=== PATIENT | female | born 1955 | race Caucasian/White ===

== ENCOUNTER 2024-08-29 07:54 | Emergency (ER) | payer OTHER, BC, SELFPAY ==
[2024-08-29 08:03] VITALS: BP 169/84; BMI 27.8
[2024-08-29] MEDS: DILAUDID 0.5 MG IM (08:19)
--- NOTE | 2024-08-29 09:13 | ED.MUSCINJ ---
HPI-Injury
General
Chief Complaint: Fall
Time Seen by Provider: 08/29/24 08:08
History of Present Illness-Injury
Initial Injury comments:
Patient is a 68-year-old woman presenting to the emergency department left shoulder injury. Patient states that her dog was on a leash and the dog got spooked causing her to fall hitting her shoulder. She did not hit her head or lose
consciousness. She is not on any blood thinners. She was able to get up and ambulate after the fall. Her only complaint is shoulder pain. No numbness tingling. Weakness secondary to the pain.
Phy Exam
Physical Exam
Physical Exam:
GENERAL: no acute distress
HEENT: atraumatic, extraocular muscles intact, no signs of entrapment, dentition intact, no other obvious trauma
NECK: no midline tenderness, normal range of motion
BACK: no midline tenderness, no other obvious trauma
CHEST: no tenderness, no flail segment, no subcutaneous emphysema, no other obvious trauma
LUNGS: clear to auscultation bilaterally
CARDIOVASCULAR: regular rate and rhythm
ABDOMEN: soft, non-tender, no masses, no other obvious trauma
PELVIS: stable, no obvious injury
EXTREMITIES: Left shoulder with tenderness diffusely,, no skin tenting, no obvious deformity otherwise moving all extremities, distal pulses intact, no other obvious trauma
NEUROLOGIC: awake, alert x 3, no focal deficits
Injury Course
Orders/Labs/Results
Orders:
Orders
08/29/24 08:15
HYDROmorphone [Dilaudid] 0.5 mg IM NOW STA
CR Shoulder, Trauma - Left Urgent
Reason For Exam: deformity
08/29/24 08:52
Sling Left-Treatment ONCE
Ibuprofen [Motrin] 800 mg PO NOW STA
08/29/24 09:54
Ibuprofen [Motrin] 800 mg .ROUTE .STK-MED ONE
08/29/24 09:55
Ibuprofen [Motrin] 800 mg PO NOW STA
MDM/Problems Addressed
Differential Diagnosis Includes:
Patient is a 68-year-old woman presenting to the emergency department after a fall. Vitals are unremarkable and exam does show tenderness over the left shoulder. Concern for fracture. Will obtain x-ray. Will pain control. Consider obtaining CT
scan of the head however patient did not hit her head and has no neurodeficits and is not on a blood thinner so we will hold off.
*Critical Care Note
Total Time (30-74mins, 75-104mins- exclusive of procedures): Not Applicable
Update Note
Update Note:
On reevaluation pain has slightly improved. Will give ibuprofen. X-ray per my interpretation with humeral neck and humeral head racture. Will place patient in sling. Per the official read there is a 7 mm displacement of the surgical neck. I did
discuss with on-call orthopedics who recommended initial nonop management with sling. Will discharge at this time with orthopedic follow-up. Will send prescription for oxycodone.
ED Attending Note
-
Portions of this chart may have been created with voice recognition software.� Occasional wrong word or��sound alike� substitutions may have occurred due to the inherent limitations of voice recognition software.
Discharge Plan
Departure
Patient Disposition: Home (Routine Discharge)
Date of Disposition: 08/29/24
Time of Disposition: 10:19
Patient with high blood pressure during this ER visit?: No
Discharge Problem:
Fracture, humerus, neck, Fracture, humerus, head
Instructions: How to Use a Shoulder Sling ED
Prescriptions:
New
oxycodone 5 mg tablet
5 mg PO Q6H PRN (Reason: Pain) Qty: 14 0RF
No Action
aspirin 325 mg Tablet
325 mg PO BIDPRN PRN (Reason: mild pain)
Referrals:
Tadeo Vidales MD [Active] - Call in 1-3 days for appt
Rolando Mathur MD [Family Provider] -
Activity Restrictions/Additional Instructions:
You were seen in the Emergency Department today for a fracture in your arm. Please make sure you follow-up with orthopedic surgery. Please keep the sling on until you have been evaluated by orthopedic surgery.
We would like for you to follow up with your primary care physician for further evaluation. If you experience fever, worsening of your symptoms, or develop any other new or concerning symptoms, please return to the Emergency Department immediately.
Please see the attached sheet for additional information.
We discussed pain medications:
You may take Tylenol (also known as Acetaminophen) for pain.
You may take 1000mg Acetaminophen (two extra-strength tablets) per dose, which should be taken every 6-8 hours, or three times a day.
If you have normal strength Tylenol, you can take 650mg (two normal strength tablets) every 4-6 hours.
Do not take more than 3,000mg (3 grams) of Acetaminophen per day.
Never take more than as directed on the bottle.
You may also take Ibuprofen (also known as Motrin or Advil). If taking with Tylenol, alternate and take between dosing.
You may take 400-800mg of Ibuprofen per dose, which should be taken every 6-8 hours.
Do not take more than 3200mg (3.2 grams) of Ibuprofen per day.
You may use Oxycodone for severe or breakthrough pain. This medication can cause constipation and drowsiness. Do not drive or make important decisions while taking it. Consider using a laxative such as Senna while taking this medication.
Please see your primary care doctor soon to be reevaluated and to make sure that you are improving. We have included information about establishing care with a doctor if you do not have one.
We talked about your evaluation, diagnosis, and treatment in the Emergency Department today. You must see your primary doctor for recheck and followup care in order to evaluate your progress or any changes. Have your doctor recheck the test
results/information from the ED visit. As discussed, RETURN to the ED if you develop worsening/changing symptoms or have no improvement in symptoms after the treatments provided.
Discharge Date and Time
Print Language: GEORGIAN
[2024-08-29] MEDS: MOTRIN 800 MG PO (09:56)
[2024-08-29 10:30] VITALS: BP 139/75
== END 2024-08-29 10:30 | disposition home or self-care (01) ==
LOC: EMR 07:54
PROVIDERS: EMERGENCY PHYSICIAN Student in an Organized Health Care Education/Training Program; FAMILY PHYSICIAN Internal Medicine
DX: S42.212A Unspecified displaced fracture of surgical neck of left humerus, initial encounter for closed fracture (principal); S42.292A Other displaced fracture of upper end of left humerus, initial encounter for closed fracture; W19.XXXA Unspecified fall, initial encounter
CPT/HCPCS: 96372; 99284; 73030

== ENCOUNTER → 2025-01-02 09:07 | Outpatient (REF) | payer OTHER, SELFPAY | LOC: RCS 09:07 | PROVIDERS: ATTENDING PHYSICIAN Hospitalist; FAMILY PHYSICIAN Internal Medicine | DX: R00.2 Palpitations (principal) | CPT/HCPCS: 93225; 93226 ==

== ENCOUNTER → 2025-06-02 11:08 | Outpatient (REF) | payer OTHER, SELFPAY | LOC: HWRAD 11:08 | PROVIDERS: ATTENDING PHYSICIAN Hospitalist | DX: R22.1 Localized swelling, mass and lump, neck (principal) | CPT/HCPCS: 76536 ==